=== PATIENT | male | born 1955 | race American Indian/Alaskan Native ===

== ENCOUNTER 2022-08-22 06:02 | Day surgery (SDC) | payer BC ==
[~2022-08-22 06:02] MED LIST: Nozin Nasal Sanitizer NASBOTH SCH
[2022-08-22 06:37] LABS: ESTIMATED GFR 67 mL/min (>60)
[2022-08-22] MEDS ORDERED: Bupivacaine 0.5% 50 ML MDV ONE (06:44)
[2022-08-22] MEDS ORDERED: Lactated Ringers 1,000 ML IV SCH (07:00)
[2022-08-22] MEDS ORDERED: Midazolam 1 MG/ML 2 ML SDV ONE (07:24)
[2022-08-22] MEDS ORDERED: fentaNYL 100 MCG/2 ML SDV ONE (07:24)
[2022-08-22] MEDS ORDERED: Ondansetron 4 MG/2 ML SDV ONE (07:25)
[2022-08-22] MEDS ORDERED: Neostigmine Methylsulfate 1 MG/ML 5 ML Syringe ONE (07:25)
[2022-08-22] MEDS ORDERED: Rocuronium 50 MG/5 ML Vial ONE (07:25)
[2022-08-22] MEDS ORDERED: Dexamethasone 4 MG/ML SDV ONE (07:25)
[2022-08-22] MEDS ORDERED: Propofol 200 MG/20 ML SDV ONE (07:25)
[2022-08-22] MEDS ORDERED: Succinylcholine 200 MG/10 ML MDV ONE (07:25)
[2022-08-22] MEDS ORDERED: Glycopyrrolate 0.2 MG/ML 5 ML MDV ONE (07:25)
[2022-08-22] MEDS ORDERED: Bupivacaine 0.5% 30 ML SDV ONE (07:28)
[2022-08-22] MEDS ORDERED: ceFAZolin 2 GM in Sodium Chloride 0.9% 50 ML IV ONE (07:45)
[2022-08-22] MEDS ORDERED: ePHEDrine 50 MG/ML SDV ONE (08:52)
[2022-08-22] MEDS ORDERED: Sodium Chloride 0.9% 10 ML ONE ×2 (08:52→09:03)
[2022-08-22] MEDS ORDERED: Phenylephrine 1% 10 MG/ML SDV ONE (09:03)
[2022-08-22] MEDS ORDERED: Lactated Ringers 1,000 ML ONE (09:32)
[2022-08-22] MEDS ORDERED: Morphine 2 MG/ML SYRINGE IVPUSH PRN (10:35)
[2022-08-22] MEDS ORDERED: Magnesium Hydroxide 400 MG/5 ML Susp 30 ML Cup PO PRN (10:35)
[2022-08-22] MEDS ORDERED: Ondansetron 4 MG Tab.DIS PO PRN (10:35)
[2022-08-22] MEDS ORDERED: traMADol 50 MG Tab PO PRN (10:35)
[2022-08-22] MEDS ORDERED: ceFAZolin 1 GM in Sodium Chloride 0.9% 50 ML IV SCH (10:45)
[2022-08-22] MEDS: Acetaminophen 325 MG Tab PO SCH ×2 (16:11→21:17)
[2022-08-22] MEDS: ceFAZolin 1 GM in Premix Bag 1 BAG IV SCH ×2 (16:11→23:18)
[2022-08-22] MEDS: Sodium Chloride 0.9% 1,000 ML IV SCH ×2 (17:08→23:18)
[2022-08-22] MEDS: Docusate Sodium 100 MG Cap PO SCH (21:18)
[2022-08-22] MEDS: Nozin Nasal Sanitizer NASBOTH SCH (21:18)
[2022-08-23] MEDS: Acetaminophen 325 MG Tab PO SCH ×2 (03:08→09:33)
[2022-08-23] MEDS ORDERED: Psyllium Husk Powder Sugar Free 5.85 GM Packet PO SCH (09:00)
[2022-08-23] MEDS: Docusate Sodium 100 MG Cap PO SCH (09:33)
[2022-08-23] MEDS: Nozin Nasal Sanitizer NASBOTH SCH (09:35)
== END 2022-08-23 13:15 | disposition home or self-care (01) ==
LOC: JP.SDS 06:02 → JP.MS 10:35 → JP.SDS 08-23 13:15
PROVIDERS: ATTEND Specialist
DX: M19.011 Primary osteoarthritis, right shoulder (principal); I10 Essential (primary) hypertension; F17.200 Nicotine dependence, unspecified, uncomplicated; E66.9 Obesity, unspecified; M51.36 Other intervertebral disc degeneration, lumbar region; Z68.37 Body mass index [BMI] 37.0-37.9, adult; Z98.890 Other specified postprocedural states; Z79.899 Other long term (current) drug therapy; Z88.4 Allergy status to anesthetic agent; Z88.6 Allergy status to analgesic agent; Z20.822 Contact with and (suspected) exposure to COVID-19
CPT/HCPCS: 23472; 36415; 73020; 80048; 85025; 87635; 97110; 97116; 97161; 97165; 97535; A9270; C1713; J0330; J0690; J1100; J2250; J2370; J2405; J2704; J2710; J3010; J3490; J7030; J7120; U0002

== ENCOUNTER 2022-12-19 07:18 | Day surgery (SDC) | payer OTHER ==
[2022-12-19] MEDS ORDERED: Dexamethasone 4 MG/ML SDV ONE (07:21)
[2022-12-19] MEDS ORDERED: Glycopyrrolate 0.2 MG/ML 5 ML MDV ONE (07:21)
[2022-12-19] MEDS ORDERED: Succinylcholine 200 MG/10 ML MDV ONE (07:21)
[2022-12-19] MEDS ORDERED: Rocuronium 50 MG/5 ML Vial ONE (07:21)
[2022-12-19] MEDS ORDERED: Propofol 200 MG/20 ML SDV ONE (07:21)
[2022-12-19] MEDS ORDERED: Ondansetron 4 MG/2 ML SDV ONE (07:21)
[2022-12-19] MEDS ORDERED: fentaNYL 250 MCG/5 ML SDV ONE (07:21)
[2022-12-19] MEDS ORDERED: Neostigmine Methylsulfate 1 MG/ML 5 ML Syringe ONE (07:21)
[2022-12-19] MEDS ORDERED: Bupivacaine 0.5% 30 ML SDV ONE ×2 (07:22)
[2022-12-19 07:56] LABS: BASOPHILS PERCENT AUTO 0.3 % (0.1-1.3); EOSINOPHILS ABSOLUTE AUTO 0.21 K/uL (0.00-0.40); EOSINOPHILS PERCENT AUTO 2.9 % (0.0-5.4); HEMATOCRIT 62.5 % (38.4-49.7); IMMATURE GRAN ABSOLUTE AUTO 0.04 K/uL (0.00-0.23); IMMATURE GRAN PERCENT AUTO 0.6 % (0.0-0.7); LYMPHOCYTES PERCENT AUTO 24.8 % (11.4-47.7); MEAN CORPUSCULAR HEMOGLOBIN 26.1 pg (31.6-35.5); MEAN CORPUSCULAR HGB CONC 31.5 g/dL (31.6-35.5); MEAN CORPUSCULAR VOLUME 82.9 fL (81.4-99.0); MONOCYTES ABSOLUTE AUTO 0.63 K/uL (0.20-0.90); MONOCYTES PERCENT AUTO 8.7 % (3.3-12.6); NEUTROPHILS ABSOLUTE AUTO 4.57 K/uL (1.0-7.6); NEUTROPHILS PERCENT AUTO 62.7 % (40.0-78.1); PLATELET COUNT,PLT 191 K/uL (130-375); RED BLOOD CELL COUNT 7.54 M/uL (4.14-5.76); WHITE BLOOD CELL COUNT,WBC 7.3 K/uL (3.2-11.0)
[2022-12-19 08:06] LABS: BASOPHILS ABSOLUTE AUTO 0.02 K/uL (0.00-0.10); HEMOGLOBIN 19.7 g/dL (12.9-16.9)
[2022-12-19 08:17] LABS: ALANINE AMINOTRANSFERASE,ALT 26 U/L (12-78); ALBUMIN 3.7 g/dL (3.4-5.0); ALKALINE PHOSPHATASE 118 U/L (46-116); ANION GAP 8.2 mmol/L (5.0-14.0); ASPARTATE AMNIOTRANSFERASE,AST 25 U/L (15-37); BILIRUBIN TOTAL 0.4 mg/dL (0.2-1.0); BLOOD UREA NITROGEN,BUN 23 mg/dL (7-18); CALCIUM 8.6 mg/dL (8.5-10.1); CARBON DIOXIDE,CO2 26 mmol/L (21-32); CHLORIDE,CL 108 mmol/L (100-108); CREATININE 1.1 mg/dL (0.8-1.3); ESTIMATED GFR 74 mL/min (>60); GLUCOSE RANDOM 101 mg/dL (74-106); POTASSIUM,K 4.4 mmol/L (3.6-5.2); PROTEIN TOTAL,TP 7.6 g/dL (6.4-8.2); SODIUM,NA 142 mmol/L (140-148)
[2022-12-19] MEDS ORDERED: Lactated Ringers 1,000 ML IV SCH (09:00)
[2022-12-19] MEDS ORDERED: Nozin Nasal Sanitizer NASBOTH ONE (09:00)
[2022-12-19] MEDS ORDERED: ceFAZolin 2 GM in Premix Bag 1 BAG IV ONE (10:00)
[2022-12-19] MEDS ORDERED: Tranexamic Acid 1,000 MG in Sodium Chloride 0.9% 50 ML IV ONE (10:15)
== END 2022-12-19 10:07 ==
LOC: JP.SDS 07:18
PROVIDERS: ATTEND Specialist
DX: M19.012 Primary osteoarthritis, left shoulder (principal); Z53.09 Procedure and treatment not carried out because of other contraindication; K21.9 Gastro-esophageal reflux disease without esophagitis; Z79.899 Other long term (current) drug therapy; Z20.822 Contact with and (suspected) exposure to COVID-19
CPT/HCPCS: 36415; 80053; 85025; 87635; A9270; J0690; J3490; J7120; J0330; J1100; J2405; J2704; J2710; J3010; U0002

== ENCOUNTER 2023-01-28 07:27 | Day surgery (SDC) | payer OTHER ==
[~2023-01-28 07:27] MED LIST changes: +Bupivacaine 0.5% 50 ML MDV ONE; -Nozin Nasal Sanitizer NASBOTH SCH
[2023-01-28] MEDS ORDERED: Neostigmine Methylsulfate 1 MG/ML 5 ML Syringe ONE (07:39)
[2023-01-28] MEDS ORDERED: Propofol 200 MG/20 ML SDV ONE (07:39)
[2023-01-28] MEDS ORDERED: Succinylcholine 200 MG/10 ML MDV ONE (07:39)
[2023-01-28] MEDS ORDERED: Dexamethasone 4 MG/ML SDV ONE (07:39)
[2023-01-28] MEDS ORDERED: Bupivacaine 0.5% 30 ML SDV ONE (07:39)
[2023-01-28] MEDS ORDERED: Glycopyrrolate 0.2 MG/ML 5 ML MDV ONE (07:39)
[2023-01-28] MEDS ORDERED: Rocuronium 50 MG/5 ML Vial ONE (07:39)
[2023-01-28] MEDS ORDERED: Ondansetron 4 MG/2 ML SDV ONE (07:39)
[2023-01-28] MEDS ORDERED: fentaNYL 250 MCG/5 ML SDV ONE (07:42)
[2023-01-28] MEDS ORDERED: Ondansetron 4 MG/2 ML SDV IVPUSH PRN (07:51)
[2023-01-28] MEDS ORDERED: Docusate Sodium 100 MG Cap PO PRN (07:51)
[2023-01-28] MEDS ORDERED: Morphine 2 MG/ML SYRINGE IVPUSH PRN (07:51)
[2023-01-28] MEDS ORDERED: oxyCODONE 5 MG Tab PO PRN (07:57)
[2023-01-28] MEDS ORDERED: Nozin Nasal Sanitizer NASBOTH ONE (08:00)
[2023-01-28] MEDS ORDERED: Lactated Ringers 1,000 ML IV SCH (08:00)
[2023-01-28 08:06] LABS: BASOPHILS PERCENT AUTO 0.3 % (0.1-1.3); EOSINOPHILS ABSOLUTE AUTO 0.24 K/uL (0.00-0.40); EOSINOPHILS PERCENT AUTO 3.4 % (0.0-5.4); HEMATOCRIT 59.2 % (38.4-49.7); IMMATURE GRAN ABSOLUTE AUTO 0.05 K/uL (0.00-0.23); IMMATURE GRAN PERCENT AUTO 0.7 % (0.0-0.7); LYMPHOCYTES ABSOLUTE AUTO 1.56 K/uL (0.8-3.3); MEAN CORPUSCULAR HEMOGLOBIN 26.4 pg (31.6-35.5); MEAN CORPUSCULAR HGB CONC 31.6 g/dL (31.6-35.5); MEAN CORPUSCULAR VOLUME 83.6 fL (81.4-99.0); MONOCYTES ABSOLUTE AUTO 0.61 K/uL (0.20-0.90); MONOCYTES PERCENT AUTO 8.6 % (3.3-12.6); NEUTROPHILS ABSOLUTE AUTO 4.61 K/uL (1.0-7.6); PLATELET COUNT,PLT 207 K/uL (130-375); RED BLOOD CELL COUNT 7.08 M/uL (4.14-5.76); WHITE BLOOD CELL COUNT,WBC 7.1 K/uL (3.2-11.0)
[2023-01-28 08:09] LABS: HEMOGLOBIN 18.7 g/dL (12.9-16.9)
[2023-01-28 08:10] LABS: BASOPHILS ABSOLUTE AUTO 0.02 K/uL (0.00-0.10)
[2023-01-28] MEDS: Nozin Nasal Sanitizer NASBOTH SCH ×2 (08:15→20:47)
[2023-01-28 08:27] LABS: A/G RATIO 0.9 (1.2-2.2); ALANINE AMINOTRANSFERASE,ALT 29 U/L (12-78); ALBUMIN 3.5 g/dL (3.4-5.0); ALKALINE PHOSPHATASE 113 U/L (46-116); ANION GAP 7.4 mmol/L (5.0-14.0); ASPARTATE AMNIOTRANSFERASE,AST 24 U/L (15-37); BILIRUBIN TOTAL 0.5 mg/dL (0.2-1.0); BLOOD UREA NITROGEN,BUN 20 mg/dL (7-18); CALCIUM 8.7 mg/dL (8.5-10.1); CARBON DIOXIDE,CO2 27 mmol/L (21-32); CHLORIDE,CL 108 mmol/L (100-108); CREATININE 1.1 mg/dL (0.8-1.3); ESTIMATED GFR 74 mL/min (>60); GLUCOSE RANDOM 92 mg/dL (74-106); POTASSIUM,K 4.1 mmol/L (3.6-5.2); PROTEIN TOTAL,TP 7.4 g/dL (6.4-8.2); SODIUM,NA 142 mmol/L (140-148)
[2023-01-28] MEDS ORDERED: ceFAZolin 2 GM in Premix Bag 1 BAG IV ONE (08:30)
[2023-01-28] MEDS ORDERED: Tranexamic Acid 1,000 MG in Sodium Chloride 0.9% 50 ML IV ONE (08:45)
[2023-01-28] MEDS ORDERED: Aspirin 325 MG Tab.EC PO SCH (09:00)
[2023-01-28] MEDS ORDERED: ePHEDrine 50 MG/ML SDV ONE (09:28)
[2023-01-28] MEDS ORDERED: Lactated Ringers 1,000 ML ONE (10:05)
[2023-01-28] MEDS ORDERED: Phenylephrine 1% 10 MG/ML SDV ONE (10:14)
[2023-01-28] MEDS ORDERED: Sodium Chloride 0.9% 10 ML ONE (10:15)
[2023-01-28] MEDS ORDERED: Ketorolac 15 MG/ML SDV IVPUSH PRN (12:34)
[2023-01-28] MEDS: Acetaminophen 325 MG Tab PO SCH ×3 (13:12→23:59)
[2023-01-28] MEDS: ceFAZolin 1 GM in Premix Bag 1 BAG IV SCH ×2 (17:24→23:58)
[2023-01-28] MEDS: oxyCODONE 5 MG Tab PO PRN ×2 (17:31→23:59)
[2023-01-28] MEDS: Sodium Chloride 0.9% 1,000 ML IV SCH (20:43)
[2023-01-28] MEDS: Aspirin 325 MG Tab.EC PO SCH (20:49)
[2023-01-29] MEDS: Sodium Chloride 0.9% 1,000 ML IV SCH (05:01)
[2023-01-29] MEDS: Acetaminophen 325 MG Tab PO SCH (05:05)
[2023-01-29] MEDS: oxyCODONE 5 MG Tab PO PRN (06:15)
[2023-01-29 06:54] LABS: HEMOGLOBIN 16.2 g/dL (12.9-16.9)
[2023-01-29] MEDS: ceFAZolin 1 GM in Premix Bag 1 BAG IV SCH (08:54)
[2023-01-29] MEDS: Nozin Nasal Sanitizer NASBOTH SCH (08:56)
[2023-01-29] MEDS: Aspirin 325 MG Tab.EC PO SCH (08:57)
== END 2023-01-29 11:01 | disposition home or self-care (01) ==
LOC: JP.SDS 07:27 → JP.MS 07:51 → JP.SDS 01-29 11:01
PROVIDERS: ATTEND Specialist
DX: M75.112 Incomplete rotator cuff tear or rupture of left shoulder, not specified as traumatic (principal); M19.012 Primary osteoarthritis, left shoulder; M94.212 Chondromalacia, left shoulder; D75.1 Secondary polycythemia; Z20.822 Contact with and (suspected) exposure to COVID-19; Z88.8 Allergy status to other drugs, medicaments and biological substances
CPT/HCPCS: 23420; 36415; 80053; 85014; 85018; 85025; 87635; 97110; 97165; A9270; C1776; J0690; J1100; J2370; J2405; J2704; J2710; J3010; J3490; J7030; J7120; J0330; U0002